=== PATIENT | male | born 1995 | race Caucasian/White ===

== ENCOUNTER 2023-11-12 12:33 | Inpatient (IN) | payer MEDICAID, SELFPAY ==
[2023-11-12 12:41] VITALS: BP 114/67; PULSE 73; RESP 16; TEMP 36.5; O2SAT 100
[2023-11-12 12:47] VITALS: BMI 23.7
[2023-11-12 14:00] VITALS: BP 114/67; PULSE 73; RESP 16; TEMP 36.5; O2SAT 100
--- NOTE | 2023-11-12 16:09 | PC.NURSE ---
PATIENT told this nurse that he does not want his mother to have any knowledge about his stay here, that he wants us to take her off of his hipaa list.
--- NOTE | 2023-11-12 16:10 | PC.NURSE ---
Patient talking on phone, speech is animated and includes profanities. Patient keeps saying bro I'm about to fucking freak the fuck out. Patient asks staff if when he was talking on the phone, if we were talking on him. Patient says that he is perceptive and is always right, that he always can tell when people are talking shit on him. Patient says that his perceptiveness causes a lot of friction between him and another people, because people are always trying to lie to each other and he catches on. Patient animated and defensive. Patient paranoid. Patient offered medication. Patient says he wants his home meds, which are trazodone, zyprexa, and hydroxyzine.
[2023-11-12] MEDS: OLANZapine 5 mg ODT PO (16:29)
--- NOTE | 2023-11-12 17:07 | PC.NURSE ---
While doing belongings inventory, a baggie with trace amounts of a white substance was discovered. Security notified. Security Munir and Ted disposed of baggie and its contents in the sharps container.
[2023-11-12 20:33] VITALS: BP 115/61; PULSE 75; RESP 17; TEMP 36.7; O2SAT 97
[2023-11-13 06:00] VITALS: BP 115/64; PULSE 66; RESP 16; TEMP 36.6; O2SAT 99
--- NOTE | 2023-11-13 06:52 | P.NPUHP_ITS ---
Providers/Chief Complaint Admitting Physician: Louis Julien MD Chief Complaint: Meth Psychosis HPI NPU History of Present Illness Karl Metzger is a 28 year old male who presented to an outside hospital with psychotic behavior and positive for methamphetamine. He was placed on a hold and transferred to [facility] and admitted to the neuropsychiatric unit for definitive treatment of those issues. He presented today reporting: Chief complaint The patient reports feelings of paranoia, believing that everyone is out to get him. He also admits to not taking his prescribed medications, Enoxacin, Trazodone, and Hydroxychloroquine. History of the present complaint The patient, a 28-year-old male, presented with a history of paranoia, which he reported has been affecting his employment since his release from senior care. He expressed a belief that people are always out to get him, a sentiment he has held for a significant period. He has been hospitalized twice for psychiatric reasons, but has not engaged in any outpatient services such as therapy or counseling. The patient reported a history of substance use, including daily cannabis use a nd methamphetamine use, which he identified as his primary drug of choice. He also reported occasional alcohol consumption, but stated that he has not drunk alcohol for a while. He has not been to rehab and has not been sober for a year outside of senior care. He reported last using methamphetamine four days prior to the consultation. The patient also reported experiencing auditory hallucinations, hearing his own voice telling him what's going on. He expressed difficulty with sleep, hinting at possible nightmares or sleep disturbances, but did not provide specific details. He has been prescribed Enoxacin, Trazodone, and Hydroxychloroquine, but admitted to not taking these medications as prescribed. 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 He reported that his paranoia has been a significant issue since his release, affecting his employment. He also reported a history of substance use from a young age, which he attributed to his low-income family background. The patient has a daughter who is approximately six to seven months old. He recently from the child's mother, with whom he had been in a relationship since his release from senior care. He is currently homeless and unemployed. The patient described his mood as different from others, stating that he either does not feel emotions or feels them more intensely than others. He reported feeling paranoid at the time of the consultation. The patient has a family history of bipolar disorder and substance use. He reported that his mother used drugs throughout her youth and that addiction is present on both sides of his family. He was not aware of any suicide attempts or deaths by suicide in his family. The patient did not report any previous treatments, interventions, or therapies for his mental health issues. He did not mention any past or current medications other than those mentioned above. Mental health history The patient has been hospitalized twice for psychiatric reasons and has spent a significant portion of his life in senior care. He has not engaged in outpatient services or therapy. He admits to hearing voices, but identifies them as his own. He also reports potential underlying issues of depression and paranoia, which he believes may be exacerbated by his drug use. Social history The patient has a history of substance abuse, including tobacco, alcohol, cannabis, and methamphetamine. He started using substances at a young age due to his low-income family background. He has been in a relationship since his release from senior care, which ended four months ago. He has one child, a [id number] girl. He is currently homeless and unemployed. He has a history of incarceration, with a six and a half year sentence for armed robbery. Meds NPU Home Medications Medication Instructions Recorded Confirmed Last Taken Type No Known Home Medications 11/13/23 11/13/23 Unknown History Allergies Allergy/AdvReac Type Severity Reaction Status Date / Time No Known Allergies Allergy Verified 11/12/23 17:14 Mental Status Exam MSE Comments: This is an slender, well-developed white male in hospital scrubs with limited grooming and eye contact. Significant tattooing on exposed skin no abnormal movements except for psychomotor agitation. Cooperative with exam in mild to moderate distress. Speech was slightly increased rate and normal volume. Mood described as's because I do not like I feel like other people do, affect slightly odd and guarded. Thought process was linear and mostly organized. Thought content: Patient denied suicidal or homicidal ideation , there were no delusions reported but concerns for paranoid or persecutory delusions noted, he denied visual but endorsed auditory hallucinations. The patient exhibits signs of paranoia, believing that others are out to get him. He reports hearing voices, which he identifies as his own. He also admits to feelings of numbness and intense emotions. He denies current thoughts of suicide or violence towards others. Attention and concentration were limited and memory appeared mostly reliable but none were formally tested. He is alert and oriented x 3. Insight and judgment limited, impulse control is impaired. Vitals/I&O/Wt Last Vital Signs Temp 97.9 F 11/13/23 06:00 Pulse 66 11/13/23 06:00 Resp 16 11/13/23 06:00 BP 115/64 11/13/23 06:00 Pulse Ox 99 11/13/23 06:00 O2 Del Method Room Air 11/12/23 12:47 Weight last 48 hrs Weight 79.379 kg A&P Assessment and plan (1) Psychosis: (2) Methamphetamine use disorder, severe: (3) Paranoia: Plan This is a 28-year-old white male who presented to an outside hospital with psychotic symptoms and weird behavior and a limited history of psychiatric treatment presents here with psychosis and active addiction. The patient has a history of substance abuse and mental health issues, including paranoia and potential depression. His paranoia is affecting his employment and social relationships. He is currently not taking his prescribed medications and is homeless. 1. Consider Invega 6 mg p.o. daily. 2. Continue every 15 minute observation. 3. Encourage individual, group and milieu therapies. 4. Obtain collateral information on what his baseline actually is. 5. Encourage sober living treatment after discharge at the highest level of care to which he is willing to commit. Involuntary Hold Information 96 Hour Hold: 96 Hour Involuntary Admission: No Attestations NPU Medical Necessity Statement*: Inpatient hospitalization is medically necessary and the clinically appropriate intervention at this time. We will monitor medication to make changes as indicated. Patient will be in the hospital for over two midnights. His likely length of stay 3-5 days. Coding Level of Care Code Acute Code for [facility] F[facility] Diagnoses Psychosis F29 Methamphetamine use disorder, severe F15.20 Paranoia F22
--- NOTE | 2023-11-13 08:48 | PC.NURSE ---
IN BED RESTING. THIS RN IN TO ASSESS PT. RN CALLED FOR PT SEVERAL TIMES AND INTRODUCED SELF. PT ROLLED OVER AND STATED I'M FINE, I'M FINE. PT WAS ASKED TO PARTICIPATE IN ASSESSMENT QUESTIONS WHEN PT STATED I SAID I'M FINE. I'M NOT DOING YOUR QUESTIONS. SUPPORT WAS VOICED.
[2023-11-13 14:00] VITALS: BP 104/64; PULSE 82; RESP 20; TEMP 36.6; O2SAT 100
[2023-11-13] MEDS: paliperidone ER 3 mg Tablet PO (18:35)
[2023-11-13 20:26] VITALS: BP 112/73; PULSE 62; RESP 18; TEMP 36.9; O2SAT 97
[2023-11-14 06:00] VITALS: BP 91/55; PULSE 80; RESP 16; TEMP 36.9; O2SAT 96
[2023-11-14] MEDS: paliperidone ER 3 mg Tablet PO (09:00)
[2023-11-14 14:00] VITALS: BP 118/67; PULSE 72; RESP 18; TEMP 37.1; O2SAT 96
--- NOTE | 2023-11-14 16:41 | P.NPUPN_ITS ---
Subjective NPU Subjective: Patient presents today reporting that he is starting to develop a plan about what he is going to do. Initially talked about going to a different psychiatric facility and trying to get him to admit him and keep him for 30 days so that he can go to a different program. However he has been conversation with his family he reports and there are some other possibilities. We discussed working on making sure that his psychosis is resolved and then we can work with the social work team and his family on an appropriate follow-up. He denied any side effects to the medication. Mental Status Exam MSE Comments: This is an slender, well-developed white male in hospital scrubs with limited grooming and eye contact. Significant tattooing on exposed skin no abnormal movements except for psychomotor agitation. Cooperative with exam in mild to moderate distress. Speech was slightly increased rate and normal volume. Mood described as's because I do not like I feel like other people do, affect slightly odd and guarded. Thought process was linear and mostly organized. Thought content: Patient denied suicidal or homicidal ideation , there were no delusions reported but concerns for paranoid or persecutory delusions noted, he denied visual but endorsed auditory hallucinations. The patient exhibits signs of paranoia, believing that others are out to get him. He reports hearing voices, which he identifies as his own. He also admits to feelings of numbness and intense emotions. He denies current thoughts of suicide or violence towards others. Attention and concentration were limited and memory appeared mostly reliable but none were formally tested. He is alert and oriented x 3. Insight and judgment limited, impulse control is impaired. Vitals/I&O/Wt Last Vital Signs Temp 98.7 F 11/14/23 14:00 Pulse 72 11/14/23 14:00 Resp 18 11/14/23 14:00 BP 118/67 11/14/23 14:00 Pulse Ox 96 11/14/23 14:00 O2 Del Method Room Air 11/12/23 12:47 A&P Assessment and plan (1) Psychosis: (2) Methamphetamine use disorder, severe: (3) Paranoia: Plan This is a 28-year-old white male who presented to an outside hospital with psychotic symptoms and weird behavior and a limited history of psychiatric treatment presents here with psychosis and active addiction. The patient has a history of substance abuse and mental health issues, including paranoia and potential depression. His paranoia is affecting his employment and social relationships. He is currently not taking his prescribed medications and is homeless. 1. We started Invega 3 mg p.o. daily. Increase to Invega 6 mg p.o. daily. 2. Continue every 15 minute observation. 3. Encourage individual, group and milieu therapies. 4. Obtain collateral information on what his baseline actually is. 5. Encourage sober living treatment after discharge at the highest level of care to which he is willing to commit. Involuntary Hold Information 96 Hour Hold: 96 Hour Involuntary Admission: No Attestations NPU Medical Necessity Statement*: Inpatient hospitalization is medically necessary and the clinically appropriate intervention at this time. We will monitor medication to make changes as indicated. His likely length of stay 3-5 days. Coding Level of Care Code Acute Code for [facility] Diagnoses Psychosis F29 Methamphetamine use disorder, severe F15.20 Paranoia F22
[2023-11-14 22:00] VITALS: BP 117/78; PULSE 85; RESP 16; TEMP 36.5; O2SAT 96
[2023-11-15 06:00] VITALS: BP 115/64; PULSE 79; RESP 16; O2SAT 98
[2023-11-15] MEDS: paliperidone ER 6 mg Tablet PO (08:24)
--- NOTE | 2023-11-15 09:13 | PC.NURSE ---
patient irritable during morning assessment. Patient denies depression, suicidal ideation, homicidal ideation, anxiety, and auditory/visual hallucinations. Patient denies remembering that he had staff remove everybody from his contact list. Staff put everybody back on list today, per patient request.
--- NOTE | 2023-11-15 09:30 | P.NPUPN_ITS ---
Subjective NPU Subjective: Patient presented today reporting that he is feeling a lot better as he feels he and his family have a plan for his success. He reports knowing that he has reasons to stay sober and that he is a better version of himself when he is sober. He was willing and able to explore the situations that have contributed to his addictive behavior. He denied any side effects to the medication. Mental Status Exam MSE Comments: This is an slender, well-developed white male in hospital scrubs with improved grooming and eye contact. Significant tattooing on exposed skin. No abnormal movements.. Cooperative with exam in mild distress. Speech was slightly more normal rate and normal volume. Mood described as starting to feel better, affect congruent and less odd and guarded. Thought process was linear and mostly organized. Thought content: Patient denied suicidal or homicidal ideation , there were no delusions reported and less concern for paranoid or persecutory delusions noted, he denied visual but endorsed auditory hallucinations. The patient exhibits signs of paranoia, believing that others are out to get him. He reports hearing voices, which he identifies as his own. He also admits to feelings of numbness and intense emotions. He denies current thoughts of suicide or violence towards others. Attention and concentration were limited and memory appeared mostly reliable but none were formally tested. He is alert and oriented x 3. Insight and judgment limited, impulse control is impaired. Vitals/I&O/Wt Last Vital Signs Temp 97.7 F 11/14/23 22:00 Pulse 79 11/15/23 06:00 Resp 16 11/15/23 06:00 BP 115/64 11/15/23 06:00 Pulse Ox 98 11/15/23 06:00 O2 Del Method Room Air 11/15/23 06:00 A&P Assessment and plan (1) Psychosis: (2) Methamphetamine use disorder, severe: (3) Paranoia: Plan This is a 28-year-old white male who presented to an outside hospital with psychotic symptoms and weird behavior and a limited history of psychiatric treatment presents here with psychosis and active addiction. The patient has a history of substance abuse and mental health issues, including paranoia and potential depression. His paranoia is affecting his employment and social relationships. He is currently not taking his prescribed medications and is homeless. 1. We started Invega 3 mg p.o. daily. Increased to Invega 6 mg p.o. daily. 2. Continue every 15 minute observation. 3. Encourage individual, group and milieu therapies. 4. Obtain collateral information on what his baseline actually is. 5. Encourage sober living treatment after discharge at the highest level of care to which he is willing to commit. Involuntary Hold Information 96 Hour Hold: 96 Hour Involuntary Admission: No Attestations NPU Medical Necessity Statement*: Inpatient hospitalization is medically necessary and the clinically appropriate intervention at this time. We will monitor medication to make changes as indicated. His likely length of stay 2-4 days. Coding Level of Care Code Acute Code for [facility] Fwd Diagnoses Psychosis F29 Methamphetamine use disorder, severe F15.20 Paranoia F22
[2023-11-15 14:00] VITALS: BP 111/77; PULSE 100; RESP 17; TEMP 36.7; O2SAT 99
[2023-11-15] MEDS: trazodone 50 mg Tablet PO (21:18)
[2023-11-15 21:52] VITALS: BP 121/79; PULSE 95; RESP 18; O2SAT 98
[2023-11-16 06:00] VITALS: BP 118/73; PULSE 80; RESP 16; O2SAT 97
[2023-11-16] MEDS: paliperidone ER 6 mg Tablet PO (08:52)
[2023-11-16] MEDS: hyDROXYzine 25 mg Capsule 50 MG PO (13:49)
[2023-11-16 14:00] VITALS: BP 132/87; PULSE 79; RESP 16; TEMP 36.4; O2SAT 100
--- NOTE | 2023-11-16 19:10 | W.PM.NPUPNS ---
Subjective NPU Subjective: Patient presented today reporting that he would be really happy if he was able to leave tomorrow. He reports this is mostly due to his uncle or aunt being his likely ride in them wanting to have a sense of when he was leaving. Staff report no signs of psychosis or irritability and him being a model patient. He denies any side effects to the medication. We discussed the likelihood of discharge tomorrow. Mental Status Exam MSE Comments: This is an slender, well-developed white male in hospital scrubs with improved grooming and eye contact. Significant tattooing on exposed skin. No abnormal movements.. Cooperative with exam in mild distress. Speech was slightly more normal rate and normal volume. Mood described as starting to feel better, affect congruent and mostly euthymic except for moments of anxiety. Thought process was linear and mostly organized. Thought content: Patient denied suicidal or homicidal ideation , there were no delusions reported or noted, he denied visual or auditory hallucinations. Attention and concentration were intact and memory appeared mostly reliable but none were formally tested. He is alert and oriented x 3. Insight and judgment limited, but improving, impulse control is limited, but improving. Vitals/I&O/Wt Last Vital Signs Temp 97.6 F 11/16/23 14:00 Pulse 79 11/16/23 14:00 Resp 16 11/16/23 14:00 BP 132/87 11/16/23 14:00 Pulse Ox 100 11/16/23 14:00 O2 Del Method Room Air 11/16/23 06:00 Weight last 48 hrs Weight 75.75 kg A&P Assessment and plan (1) Psychosis: (2) Methamphetamine use disorder, severe: (3) Paranoia: Plan This is a 28-year-old white male who presented to an outside hospital with psychotic symptoms and weird behavior and a limited history of psychiatric treatment presents here with psychosis and active addiction. The patient has a history of substance abuse and mental health issues, including paranoia and potential depression. His paranoia is affecting his employment and social relationships. He is currently not taking his prescribed medications and is homeless. 1. We started Invega 3 mg p.o. daily. Increased to Invega 6 mg p.o. daily. 2. Continue every 15 minute observation. 3. Encourage individual, group and milieu therapies. 4. Obtain collateral information on what his baseline actually is. 5. Encourage sober living treatment after discharge at the highest level of care to which he is willing to commit. 6. Tentative plan for discharge tomorrow. Involuntary Hold Information 96 Hour Hold: 96 Hour Involuntary Admission: No Attestations NPU Medical Necessity Statement*: Inpatient hospitalization is medically necessary and the clinically appropriate intervention at this time. We will monitor medication to make changes as indicated. His likely length of stay 1-3 days. Coding Level of Care Code Acute Code for [facility] Fw Diagnoses Psychosis F29 Methamphetamine use disorder, severe F15.20 Paranoia F22
--- NOTE | 2023-11-16 19:53 | PC.NURSE ---
PT REQUESTED THIS CATALYST OPERATOR GASOLINE REMOVE HIS MOTHERS NAME OFF OF HIS CONTACT SHEET. MOTHERS NAME WAS REMOVED.
[2023-11-16 20:03] VITALS: BP 125/75; PULSE 83; RESP 18; TEMP 36.4; O2SAT 99
[2023-11-17 06:00] VITALS: BP 130/77; PULSE 68; RESP 18; TEMP 36.3; O2SAT 98
--- NOTE | 2023-11-17 06:46 | P.NPUDS_ITS ---
Diagnoses at Discharge Discharge Diagnosis (1) Psychosis: Status: Acute (2) Methamphetamine use disorder, severe: Status: Acute (3) Paranoia: Status: Acute Reason for Visit Reason for Visit: Meth Psychosis Involuntary Hold Information 96 Hour Hold: 96 Hour Involuntary Admission: No Mental Status Exam MSE Comments: This is an slender, well-developed white male in hospital scrubs with improved grooming and eye contact. Significant tattooing on exposed skin. No abnormal movements.. Cooperative with exam in mild distress. Speech was slightly more normal rate and normal volume. Mood described as starting to feel better, affect congruent and mostly euthymic except for moments of anxiety. Thought process was linear and mostly organized. Thought content: Patient denied suicidal or homicidal ideation , there were no delusions reported or noted, he denied visual or auditory hallucinations. Attention and concentration were intact and memory appeared mostly reliable but none were formally tested. He is alert and oriented x 3. Insight and judgment limited, but improving, impulse control is limited, but improving. Discharge Data Vitals: Last Vital Signs Temp 97.3 F L 11/17/23 06:00 Pulse 68 11/17/23 06:00 Resp 18 11/17/23 06:00 BP 130/77 11/17/23 06:00 Pulse Ox 98 11/17/23 06:00 O2 Del Method Room Air 11/16/23 06:00 Discharge Plan Discharge Prescriptions: New trazodone 50 mg Tablet 50 mg PO BEDTIME PRN (Reason: Sleep) 30 Days Qty: 30 1RF hydroxyzine pamoate 25 mg Capsule 50 mg PO Q6H PRN (Reason: Anxiety) 30 Days Qty: 120 1RF paliperidone 6 mg Tablet Extended Release 24 Hr 6 mg PO DAILY 30 Days Qty: 30 1RF No Action No Known Home Medications Discharge Orders: Discharge Order (Routine); Ordered 11/17/23 Ordered By: Louis Julien Discharge Diet: Regular Discharge Activity: Resume usual activity Patient Instructions: Opioid Safety Discharge Attestations NPU Time Spent in Discharge Care*: less than 30 min Specific Discharge Activities: Specific discharge activities: educating patient, discussing with child welfare caseworker/social workers/dc planners, documenting/other paperwork and evaluating patient/reviewing data Coding Level of Care Code Acute Code for [facility] Fwd Diagnoses Psychosis F29 Methamphetamine use disorder, severe F15.20 Paranoia F22
[2023-11-17 07:23] VITALS: BP 130/77; PULSE 68; RESP 18; TEMP 36.3; O2SAT 98
[2023-11-17] MEDS: paliperidone ER 6 mg Tablet PO (08:15)
== END 2023-11-17 10:30 | disposition home or self-care (01) | DRG 885 ==
PROVIDERS: Admitting Provider Psychiatry & Neurology Psychiatry; Visit Provider Psychiatry & Neurology Psychiatry
DX: F29 Unspecified psychosis not due to a substance or known physiological condition (principal); F15.20 Other stimulant dependence, uncomplicated; Z59.00 Homelessness unspecified; F10.90 Alcohol use, unspecified, uncomplicated; F12.90 Cannabis use, unspecified, uncomplicated; F32.A Depression, unspecified; F22 Delusional disorders; Z81.8 Family history of other mental and behavioral disorders; Z81.3 Family history of other psychoactive substance abuse and dependence
CPT/HCPCS: 97165